=== PATIENT | male | born 1965 | race Caucasian/White ===

== ENCOUNTER 2020-06-18 16:30 | Inpatient (IN) | payer OTHER ==
[~2020-06-18] VITALS: Ht 180.3 cm; Wt 117.5 kg
--- NOTE | 2020-06-18 16:55 | NUR ---
C/O MID STERNAL CHEST PRESSURE WITH SOB, NON RADIATING SINCE 1300 TODAY. DENIES DIZZY, N/V, ARM/JAW PAIN. PT HAS FACIAL RASH STARTED 1400 TODAY. PATIENT A/OX4, BREATHING EVEN AND UNLABORED, NO SOB NOTED, NEEDS ATTENDED. CHANGED INTO A GOWN, ATTACHED TO THE RESEARCH AND DEVELOPMENT MANAGER.
--- NOTE | 2020-06-18 17:00 | NUR ---
DR. URIBE AT BEDSIDE FOR EVAL.
--- NOTE | 2020-06-18 17:07 | NUR ---
EKG DONE BY EMT PRESENTED RESULT TO DR. URIBE
--- NOTE | 2020-06-18 17:09 | NUR ---
IV LINE ESTABLISHED, BLOOD DRAWN AND SENT TO LAB.
[2020-06-18] MEDS ORDERED: NITROGLYCERIN PACKET 1 GM PACKET ONE (17:10)
--- NOTE | 2020-06-18 17:17 | NUR ---
US TECH AT BEDSIDE.
[2020-06-18] MEDS ORDERED: NITROGLYCERIN PACKET 1 GM PACKET TOP ONE (17:30)
[2020-06-18 17:37] LABS: ALBUMIN 4.1 g/dL (3.4-5.0); BILIRUBIN,DIRECT 0.2 mg/dL (0.0-0.2); BILIRUBIN,TOTAL 0.6 mg/dL (0.2-1.0); CALCIUM, SERUM 9.3 mg/dL (8.5-10.1); CREATININE 1.1 mg/dL (0.6-1.3); POTASSIUM 4.1 mmol/L (3.5-5.1)
[2020-06-18 17:42] LABS: BASOPHILS % (AUTO) 0.2 % (0.0-2.0); EOSINOPHILS % (AUTO) 0.1 % (0.0-6.0); HEMATOCRIT 47 % (39-51); LYMPHOCYTES # (AUTO) 1.6 /CMM (0.8-4.8); LYMPHOCYTES % (AUTO) 13.8 % (20.0-44.0); MEAN CORPUSCULAR HGB CONC 34 g/dl (31.0-36.0); MEAN CORPUSCULAR VOLUME 94 fL (80-96); MONOCYTES # (AUTO) 0.7 /CMM (0.1-1.30); MONOCYTES % (AUTO) 6.2 % (2.0-12.0); NEUTROPHILS # (AUTO) 9.4 /CMM (1.8-8.9); NEUTROPHILS % (AUTO) 79.7 % (43.0-81.0); PLATELET COUNT (AUTO) 282 /CMM (150-450); RED BLOOD CELL COUNT(AUTO) 4.96 MIL/uL (4.5-6.0); WHITE BLOOD COUNT (AUTO) 11.8 K/uL (4.3-11.0)
--- NOTE | 2020-06-18 17:54 | NUR ---
CALLED DR. ESCAMILLA CARDIO [phone] TO CALL US BACK.
[2020-06-18 17:55] LABS: D-DIMER 0.47 mg/L(FEU (0.17-0.50)
[2020-06-18] MEDS ORDERED: HEPARIN SODIUM, PORCINE 5000 UNITS/1 ML VIAL IV ONE (18:00)
[2020-06-18] MEDS ORDERED: HEPARIN INFUSION/D5W 500 ML IV PRN ×2 (18:00→20:00)
[2020-06-18] MEDS ORDERED: CLOPIDOGREL BISULFATE 75 MG TABLET PO ONE (18:00)
--- NOTE | 2020-06-18 18:01 | NUR ---
cardiology on-call paged
[2020-06-18] MEDS ORDERED: CLOPIDOGREL BISULFATE 75 MG TABLET ONE (18:02)
[2020-06-18] MEDS ORDERED: HEPARIN SODIUM, PORCINE 5000 UNITS/1 ML VIAL ONE (18:02)
[2020-06-18] MEDS ORDERED: ONDANSETRON HCL/PF 4 MG/2 ML VIAL ONE (18:20)
[2020-06-18] MEDS ORDERED: MORPHINE SULFATE INJ 2 MG/ML DISP.SYRIN ONE (18:20)
--- NOTE | 2020-06-18 18:26 | NUR ---
PATIENT GIVEN MORPHINE 2MG IV AND ZOFRAN FOR CHEST PAIN. HEPARIN DRIP STARTED.
[2020-06-18] MEDS ORDERED: ONDANSETRON HCL/PF - ER 4 MG/2 ML VIAL IV ONE (18:30)
[2020-06-18] MEDS ORDERED: MORPHINE SULFATE INJ 2 MG/ML DISP.SYRIN IV ONE (18:30)
--- NOTE | 2020-06-18 19:18 | NUR ---
PATIENT'S PAIN HAS IMPROVED. INFORMED PATIENT'S FAMILY RE: CURRENT CONDITION. PATIENT'S VITALS STABLE. NO DISTRESS NOTED. ENDORSED HEPARIN DRIP TO KEITH YEUNG. APTT SCHEDULED AT 0000.
[2020-06-18] MEDS ORDERED: IV 1/2NS 1000 ML 1,000 ML IV PRN (20:00)
[2020-06-18] MEDS ORDERED: ACETAMINOPHEN 325 MG TABLET PO PRN (20:00)
[2020-06-18] MEDS ORDERED: NTG 50 MG/D5W250 ML BOTTL 250 ML IV PRN (20:00)
[2020-06-18] MEDS ORDERED: ONDANSETRON HCL/PF 4 MG/2 ML VIAL IV PRN (20:00)
[2020-06-18] MEDS ORDERED: NITROGLYCERIN 0.4 MG/TAB BOTTLE SL PRN (20:00)
[2020-06-18] MEDS ORDERED: ZOLPIDEM TARTRATE 5 MG TABLET PO PRN (20:00)
[2020-06-18] MEDS ORDERED: hydrALAZINE HCL 10 MG TABLET PO PRN (20:30)
--- NOTE | 2020-06-18 20:44 | NUR ---
LAB CALLED REGARDING NEGATIVE COVID RESULT.
--- NOTE | 2020-06-18 21:21 | NUR ---
TELE 322-2
--- NOTE | 2020-06-18 21:25 | NUR ---
attempted to give report. nurse busy. awaiting call back
--- NOTE | 2020-06-18 22:40 | NUR ---
New troponin draw 4.640. Dr Elliott aware. No new orders
[2020-06-18] MEDS ORDERED: NTG 50 MG/D5W250 ML BOTTL 250 ML IV ONE (22:54)
--- NOTE | 2020-06-18 23:04 | NUR ---
spoke to dr. segura per dr. mayberry request. aware of trop 4.6 and currently on heprin drip per protocol. no new orders at this time.
[2020-06-19] VITALS (39 sets, daily range): BP systolic 90–158; BP diastolic 44–116
--- NOTE | 2020-06-19 | NUR ---
GAVE REPORT TO GAMAL DUKES FOR CIPRIANO
--- NOTE | 2020-06-19 00:30 | NUR ---
PACK PULLER RCD PT FROM ER W/DX NSTEMI. PT A/Ox4. NSR ON MONITOR. NITRO DRIP DCD. HEPARIN DRIP AT 1200 UNITS/HR. PTT AT 0000. ON ROOM AIR. SKIN INTACT.
[2020-06-19] MEDS: ATORVASTATIN 40 MG TABLET PO SCH ×2 (00:40→21:24)
[2020-06-19] MEDS: METOPROLOL TARTRATE 25 MG TABLET PO SCH ×4 (00:41→21:00)
[2020-06-19] MEDS: NITROGLYCERIN 30 GM TUBE TP SCH ×6 (01:09→23:07)
[2020-06-19] MEDS ORDERED: MORPHINE SULFATE INJ 2 MG/ML DISP.SYRIN IV PRN (01:30)
[2020-06-19] MEDS ORDERED: NITROGLYCERIN PACKET 1 GM PACKET ONE ×2 (01:37→06:15)
--- NOTE | 2020-06-19 02:00 | NUR ---
EXHIBITIONS CURATOR HEPARIN ADJUSTED PER PROTOCOL PTT FOR 0800.
[2020-06-19] MEDS ORDERED: HEPARIN SODIUM, PORCINE 5000 UNITS/1 ML VIAL IV ONE (02:30)
[2020-06-19 04:34] LABS: BASOPHILS % (AUTO) 0.1 % (0.0-2.0); EOSINOPHILS % (AUTO) 0.2 % (0.0-6.0); HEMATOCRIT 42 % (39-51); HEMOGLOBIN 14.1 g/dL (13.5-17.5); LYMPHOCYTES # (AUTO) 2.3 /CMM (0.8-4.8); MEAN CORPUSCULAR HGB CONC 34 g/dl (31.0-36.0); MEAN CORPUSCULAR VOLUME 94 fL (80-96); MONOCYTES % (AUTO) 7.4 % (2.0-12.0); NEUTROPHILS # (AUTO) 10.3 /CMM (1.8-8.9); NEUTROPHILS % (AUTO) 75.3 % (43.0-81.0); PLATELET COUNT (AUTO) 276 /CMM (150-450); RED BLOOD CELL COUNT(AUTO) 4.44 MIL/uL (4.5-6.0); WHITE BLOOD COUNT (AUTO) 13.8 K/uL (4.3-11.0)
[2020-06-19 04:49] LABS: ALBUMIN 3.4 g/dL (3.4-5.0); BILIRUBIN,TOTAL 0.6 mg/dL (0.2-1.0); CALCIUM, SERUM 8.9 mg/dL (8.5-10.1); CREATININE 0.9 mg/dL (0.6-1.3); POTASSIUM 4.1 mmol/L (3.5-5.1); TOTAL PROTEIN, SERUM 6.9 g/dL (6.4-8.2)
[2020-06-19 04:59] LABS: THYROID STIMULATING HORMONE 0.154 uIU/mL (0.358-3.74)
--- NOTE | 2020-06-19 06:56 | NUR ---
LABOR DELIVERY RN PT DECLINES TO SIGN CONSENT WITHOUT SPEAKING TO
[2020-06-19] MEDS ORDERED: LIDOCAINE HCL/PF 1% 30 ML SDV ONE (08:39)
[2020-06-19] MEDS ORDERED: LOSA1TAB39 PO (08:41)
[2020-06-19] MEDS ORDERED: CLOP75TA15 PO (08:41)
[2020-06-19] MEDS ORDERED: AMLO-213 PO (08:41)
[2020-06-19] MEDS ORDERED: METO50TA16 PO (08:41)
[2020-06-19] MEDS: CLOPIDOGREL BISULFATE 75 MG TABLET PO SCH (09:00)
--- NOTE | 2020-06-19 09:00 | NUR ---
PT LEFT FOR CATHLAB, DR. ESCAMILLA EXPLAINED PROCEDURE TO PT AND PT'S . PT SIGNED CONSENT PRIOR TO LEAVING FOR CATHLAB
[2020-06-19] MEDS ORDERED: FENTANYL PF 100MCG/2ML AMPUL ONE (09:17)
[2020-06-19] MEDS ORDERED: MIDAZOLAM HCL 2 MG/2ML VIAL ONE (09:17)
[2020-06-19] MEDS ORDERED: IV NS 0.9% 1,000 ML ONE (09:19)
[2020-06-19] MEDS ORDERED: NITROGLYCERIN ICAR 1,000 MCG/10 ML VIAL ICAR ONE (09:24)
[2020-06-19] MEDS ORDERED: IODIXANOL 150 ML IV ONE (09:24)
[2020-06-19] MEDS ORDERED: ASPIRIN 81 MG TAB.CHEW ONE ×2 (09:45→10:27)
[2020-06-19] MEDS ORDERED: HEPARIN SODIUM, PORCINE 5000 UNITS/1 ML VIAL ONE (10:07)
[2020-06-19] MEDS ORDERED: TICAGRELOR 90 MG TABLET PO ONE (10:11)
[2020-06-19] MEDS ORDERED: TIROFIBAN-0.9% SODIUM CHLORIDE 100 ML IV ONE (10:14)
[2020-06-19] MEDS ORDERED: IODIXANOL 320MG/ML 100 ML IV ONE (10:16)
--- NOTE | 2020-06-19 11:14 | NUR ---
RN NOTES: Back to ICU from cath lab manager, R radial TR band inplace, no bleeding or swelling on procedure site. Pt awake and alert, cellphone within reach. Instructions not to use R hand for now due to procedure access. Explained plan of care, aware of blocked arteries involved. Aware of overnight stay again for close observation. Orders reviewed.
[2020-06-19] MEDS: PANTOPRAZOLE 40 MG TABLET.DR PO SCH (11:43)
[2020-06-19] MEDS ORDERED: methylPREDNISolone SOD SUCC 125 MG/2ML VIAL IV ONE (13:30)
[2020-06-20] VITALS (10 sets, daily range): BP systolic 92–141; BP diastolic 57–86
[2020-06-20] MEDS: NITROGLYCERIN 30 GM TUBE TP SCH (05:32)
[2020-06-20] MEDS: PANTOPRAZOLE 40 MG TABLET.DR PO SCH (08:40)
[2020-06-20] MEDS: METOPROLOL TARTRATE 25 MG TABLET PO SCH (08:41)
[2020-06-20] MEDS: CLOPIDOGREL BISULFATE 75 MG TABLET PO SCH (08:41)
[2020-06-20] MEDS ORDERED: ATOR40TA PO (09:26)
[2020-06-20] MEDS ORDERED: ASPIRIN EC 81 MG TABLET.DR PO SCH (09:30)
[2020-06-20] MEDS ORDERED: ASPI-1420 PO (09:30)
[2020-06-20] MEDS ORDERED: METF-440 PO (09:32)
[2020-06-20] MEDS ORDERED: TICAGRELOR 90 MG TABLET PO SCH (10:00)
--- NOTE | 2020-06-20 11:15 | NUR ---
RN NOTES PT DC HOME. PT A/OX4. AMBULATORY. DISCHARGE EDUCATION GIVEN, PT VERBALIZED UNDERSTANDING. VS STABLE. LEFT IN STABLE CONDITION.
== END 2020-06-20 11:11 | disposition home or self-care (01) | DRG 247 ==
LOC: ER 16:35 → TRANSITION 23:06 → ICU 23:56
PROVIDERS: ADMIT Internal Medicine; ATTEND Internal Medicine
PROC: 4A023N7 Measurement of Cardiac Sampling and Pressure, Left Heart, Percutaneous Approach (ICD-10-PCS; principal; 2020-06-19)
PROC: 027135Z Dilation of Coronary Artery, Two Arteries with Two Drug-eluting Intraluminal Devices, Percutaneous Approach (ICD-10-PCS; 2020-06-19)
PROC: B211YZZ Fluoroscopy of Multiple Coronary Arteries using Other Contrast (ICD-10-PCS; 2020-06-19)
DX: I21.4 Non-ST elevation (NSTEMI) myocardial infarction (principal); I10 Essential (primary) hypertension; E66.9 Obesity, unspecified; Z68.36 Body mass index [BMI] 36.0-36.9, adult; E78.5 Hyperlipidemia, unspecified; E11.9 Type 2 diabetes mellitus without complications; Z20.822 Contact with and (suspected) exposure to COVID-19; Z87.891 Personal history of nicotine dependence; Z88.6 Allergy status to analgesic agent; Z83.3 Family history of diabetes mellitus; I25.10 Atherosclerotic heart disease of native coronary artery without angina pectoris
CPT/HCPCS: 36415; 71045-TC; 76705-TC; 80048-TC; 80053-TC; 80061-TC; 80076-TC; 83690-TC; 84443-TC; 84484-TC; 85025-TC; 85378-TC; 85610-TC; 85730-TC; 87081-TC; 92980; 92981; 93307-TC; C1725; C1769; C1887; C9803; G0378; G0500; J1644; J2250; J2270; J2405; J2930; J3010; J3490; J7030; Q9967

== ENCOUNTER 2021-03-12 17:17 | Emergency (ER) | payer OTHER ==
[~2021-03-12] VITALS: Ht 180.3 cm; Wt 108.9 kg
[~2021-03-12 17:17] MED LIST: AMLO-213 PO; ASPI-1420 PO; ATOR40TA PO; CLOP75TA15 PO; LOSA1TAB39 PO; METF-440 PO; METO50TA16 PO
[2021-03-12 17:35] VITALS: BP 135/83
[2021-03-12] MEDS ORDERED: BUDE180A INH (17:38)
[2021-03-12] MEDS ORDERED: GUAI-671 PO (17:38)
--- NOTE | 2021-03-12 18:00 | NUR ---
Patient discharged to home in stable condition. Written and verbal after care instructions given. Patient verbalizes understanding of instruction.
== END 2021-03-12 18:04 | disposition home or self-care (01) ==
LOC: ER 17:23
DX: U07.1 COVID-19 (principal); I10 Essential (primary) hypertension; Z98.890 Other specified postprocedural states; Z88.6 Allergy status to analgesic agent; Z79.899 Other long term (current) drug therapy; Z79.82 Long term (current) use of aspirin

== ENCOUNTER 2023-04-01 20:17 | Inpatient (IN) | payer OTHER ==
[~2023-04-01] VITALS: Ht 172.7 cm; Wt 99.8 kg
[~2023-04-01 20:17] MED LIST changes: +BUDE180A INH; +GUAI-671 PO
[2023-04-01] MEDS ORDERED: LIDOCAINE 2% JEL UROJET 10 ML MM ONE ×2 (21:27→22:52)
[2023-04-02] MEDS ORDERED: CEFTRIAXONE 1GM BAG (ER ONLY) 1 GM/50 ML PIGGYBACK IV ONE (00:30)
[2023-04-02 01:07] LABS: BASOPHILS % (AUTO) 0.4 % (0.0-2.0); EOSINOPHILS # (AUTO) 0.1 K/uL (0.0-0.7); EOSINOPHILS % (AUTO) 0.8 % (0.0-6.0); HEMATOCRIT 38 % (39-51); HEMOGLOBIN 12.6 g/dL (13.5-17.5); LYMPHOCYTES # (AUTO) 1.9 K/uL (0.8-4.8); LYMPHOCYTES % (AUTO) 21.6 % (20.0-44.0); MEAN CORPUSCULAR HEMOGLOBIN 33 PG (26.0-33.0); MEAN CORPUSCULAR HGB CONC 34 g/dl (31.0-36.0); MEAN CORPUSCULAR VOLUME 97 fL (80-96); MONOCYTES # (AUTO) 0.5 K/uL (0.1-1.30); MONOCYTES % (AUTO) 5.7 % (2.0-12.0); NEUTROPHILS # (AUTO) 6.3 K/uL (1.8-8.9); NEUTROPHILS % (AUTO) 71.5 % (43.0-81.0); PLATELET COUNT (AUTO) 236 K/uL (150-450); RED BLOOD CELL COUNT(AUTO) 3.86 MIL/uL (4.5-6.0); RED CELL DISTRIBUTION WIDTH 13.4 % (11.5-15.0); WHITE BLOOD COUNT (AUTO) 8.9 K/uL (4.3-11.0)
[2023-04-02] MEDS ORDERED: CEFTRIAXONE 1GM BAG (ER ONLY) 50 ML IV ONE (01:08)
[2023-04-02 01:14] LABS: INR 1.08 (0.91-1.10); PARTIAL THROMBOPLASTIN TIME 26.1 SEC (24.3-34.3); PROTHROMBIN TIME 11.4 SECS (9.2-11.1)
[2023-04-02 01:24] LABS: ALBUMIN 3.7 g/dL (3.4-5.0); BILIRUBIN,DIRECT 0.1 mg/dL (0.0-0.2); BILIRUBIN,TOTAL 0.4 mg/dL (0.2-1.0); CALCIUM, SERUM 9.2 mg/dL (8.5-10.1); CREATININE 1.1 mg/dL (0.6-1.3); TOTAL PROTEIN, SERUM 7.1 g/dL (6.4-8.2)
[2023-04-02 01:35] LABS: POTASSIUM 3.9 mmol/L (3.5-5.1)
[2023-04-02] MEDS ORDERED: Z GUARD REMEDY 4 OZ OINT TP PRN (05:30)
[2023-04-02] MEDS ORDERED: CEFTRIAXONE 1 G in IV D5W 50 ML IV SCH (05:30)
[2023-04-02] MEDS ORDERED: ONDANSETRON HCL/PF 4 MG/2 ML VIAL IVP PRN (05:30)
[2023-04-02] MEDS ORDERED: MAG HYDROX/AL HYDROX/SIMETH 30 ML UDC PO PRN (05:30)
[2023-04-02] MEDS ORDERED: ACETAMINOPHEN 325 MG TABLET PO PRN (05:30)
[2023-04-02] MEDS ORDERED: IV NS 0.9% 1,000 ML IV PRN (05:30)
[2023-04-02] MEDS ORDERED: MORPHINE SULFATE INJ 2 MG/ML DISP.SYRIN IV PRN (05:30)
[2023-04-02] MEDS ORDERED: CLONIDINE HCL 0.1 MG TABLET PO PRN (05:30)
[2023-04-02] MEDS ORDERED: MAGNESIUM HYDROXIDE 30 ML UDC PO PRN (05:30)
[2023-04-02 06:40] VITALS: BP 155/92; TEMP 98.1
[2023-04-02 08:00] VITALS: BP 183/114; TEMP 98.8; O2SAT 95
[2023-04-02] MEDS: METOPROLOL TARTRATE 50 MG TABLET PO SCH ×2 (08:23→16:25)
[2023-04-02] MEDS: AMLODIPINE BESYLATE 10 MG TABLET PO SCH (08:23)
[2023-04-02] MEDS ORDERED: BUDESONIDE RESPULE INH 0.25 MG/2 ML AMPUL.NEB NEB SCH (09:00)
[2023-04-02] MEDS ORDERED: DEXTROSE 50%-WATER 50 ML DISP.SYRIN IV PRN (10:00)
[2023-04-02] MEDS: INSULIN REGULAR, HUMAN 100 UNIT/ML 3 ML VIAL SQ PRN ×3 (11:38→21:38)
[2023-04-02] MEDS: BLOOD SUGAR DIAGNOSTIC 1 EACH STRIP IN SCH ×3 (11:52→22:28)
[2023-04-02 11:59] LABS: APPEARANCE,URINE SLIGHTLY CLOUDY (CLEAR); BILIRUBIN,URINE NEGATIVE (NEGATIVE); BLOOD, URINE 3+ Ery/uL (NEGATIVE); COLOR,URINE RED (YELLOW); KETONES,URINE NEGATIVE (NEGATIVE); LEUKOCYTE ESTERASE ,URINE TRACE (NEGATIVE); NITRITE, URINE NEGATIVE (NEGATIVE); PH,URINE 5.5 (5.0-8.0); PROTEIN,URINE NEGATIVE (NEGATIVE); UGLUCOSE NEGATIVE (NEGATIVE); UROBILINOGEN,URINE 0.2 EU/dL (0.2)
[2023-04-02 12:14] LABS: RBC,URINE 81-100 /HPF (0-2); WBC,URINE 0-2 /HPF (0-3)
[2023-04-02 12:15] LABS: ADD URINE CULTURE NO; BACTERIA,URINE Few /HPF (None Seen); SQUAMOUS EPITHELIAL CELL,UR Rare /HPF (None Seen)
[2023-04-02 16:00] VITALS: BP 169/112; TEMP 98.4; O2SAT 95
[2023-04-02 20:00] VITALS: BP 150/88; TEMP 207.1; TEMP 97.3; O2SAT 95
[2023-04-02] MEDS ORDERED: CEFTRIAXONE 2 G in IV NS 0.9% 100 ML IV SCH (21:00)
[2023-04-03] MEDS: BLOOD SUGAR DIAGNOSTIC 1 EACH STRIP IN SCH ×2 (06:44→11:40)
[2023-04-03] MEDS: INSULIN REGULAR, HUMAN 100 UNIT/ML 3 ML VIAL SQ PRN ×2 (06:46→11:41)
[2023-04-03 07:25] LABS: BASOPHILS % (AUTO) 0.3 % (0.0-2.0); EOSINOPHILS # (AUTO) 0.1 K/uL (0.0-0.7); EOSINOPHILS % (AUTO) 0.8 % (0.0-6.0); HEMATOCRIT 36 % (39-51); HEMOGLOBIN 12.4 g/dL (13.5-17.5); LYMPHOCYTES # (AUTO) 2.2 K/uL (0.8-4.8); LYMPHOCYTES % (AUTO) 24.1 % (20.0-44.0); MEAN CORPUSCULAR HEMOGLOBIN 33 PG (26.0-33.0); MEAN CORPUSCULAR HGB CONC 34 g/dl (31.0-36.0); MEAN CORPUSCULAR VOLUME 97 fL (80-96); MONOCYTES # (AUTO) 0.9 K/uL (0.1-1.30); MONOCYTES % (AUTO) 9.8 % (2.0-12.0); NEUTROPHILS # (AUTO) 5.8 K/uL (1.8-8.9); PLATELET COUNT (AUTO) 232 K/uL (150-450); RED BLOOD CELL COUNT(AUTO) 3.76 MIL/uL (4.5-6.0); RED CELL DISTRIBUTION WIDTH 13.7 % (11.5-15.0); WHITE BLOOD COUNT (AUTO) 8.9 K/uL (4.3-11.0)
[2023-04-03 07:55] LABS: CALCIUM, SERUM 9.1 mg/dL (8.5-10.1); CREATININE 1.1 mg/dL (0.6-1.3); MAGNESIUM 2.1 mg/dL (1.8-2.4); PHOSPHORUS 3.7 mg/dL (2.5-4.9); POTASSIUM 3.9 mmol/L (3.5-5.1)
[2023-04-03 08:00] VITALS: BP 165/105; TEMP 97.7; O2SAT 96
[2023-04-03 08:17] VITALS: BP 165/105
[2023-04-03] MEDS: METOPROLOL TARTRATE 50 MG TABLET PO SCH (08:17)
[2023-04-03] MEDS: AMLODIPINE BESYLATE 10 MG TABLET PO SCH (08:17)
[2023-04-03] MEDS ORDERED: METF-442 PO (08:59)
[2023-04-03] MEDS ORDERED: FINA5TAB11 PO (08:59)
[2023-04-03] MEDS ORDERED: TICA60TA PO (08:59)
[2023-04-03] MEDS ORDERED: AMLO5TAB4 PO (08:59)
[2023-04-03] MEDS ORDERED: LOSA50TA39 PO (08:59)
[2023-04-03] MEDS ORDERED: CEPH500C2 PO (11:03)
[2023-04-03] MEDS ORDERED: HYDR-3972 PO (11:03)
== END 2023-04-03 12:45 | disposition home or self-care (01) | DRG 461 ==
LOC: ER 20:24 → MED 04-02 02:37
PROVIDERS: ADMIT Nurse Practitioner Acute Care; ATTEND Nurse Practitioner Acute Care
PROC: 3E1K78Z Irrigation of Genitourinary Tract using Irrigating Substance, Via Natural or Artificial Opening (ICD-10-PCS; principal; 2023-04-02)
DX: C67.9 Malignant neoplasm of bladder, unspecified (principal); N39.0 Urinary tract infection, site not specified; E11.9 Type 2 diabetes mellitus without complications; B96.89 Other specified bacterial agents as the cause of diseases classified elsewhere; E66.9 Obesity, unspecified; E78.5 Hyperlipidemia, unspecified; I10 Essential (primary) hypertension; I25.10 Atherosclerotic heart disease of native coronary artery without angina pectoris; I25.2 Old myocardial infarction; R31.0 Gross hematuria; Z87.891 Personal history of nicotine dependence; Z79.82 Long term (current) use of aspirin; Z79.84 Long term (current) use of oral hypoglycemic drugs; Z85.51 Personal history of malignant neoplasm of bladder; Z95.5 Presence of coronary angioplasty implant and graft; R33.8 Other retention of urine
CPT/HCPCS: 36415; 76856-TC; 80048-TC; 80076-TC; 81001; 82962-TC; 83735-TC; 84100-TC; 85025-TC; 85730-TC; 86850-TC; A4217; A4223; G0378; J0696; J1815; J2270; J3490; J7030

== ENCOUNTER 2023-04-24 12:34 | Emergency (ER) | payer OTHER ==
[~2023-04-24] VITALS: Ht 180.3 cm; Wt 113.4 kg
[~2023-04-24 12:34] MED LIST changes: -AMLO-213 PO; +AMLO5TAB4 PO; -ASPI-1420 PO; -ATOR40TA PO; -BUDE180A INH; +CEPH500C2 PO; -CLOP75TA15 PO; +FINA5TAB11 PO; -GUAI-671 PO; +HYDR-3972 PO; -LOSA1TAB39 PO; +LOSA50TA39 PO; -METF-440 PO; +METF-442 PO
[2023-04-24 13:26] VITALS: TEMP 98.2
[2023-04-24 14:30] LABS: BASOPHILS # (AUTO) 0.2 K/uL (0.0-0.2); BASOPHILS % (AUTO) 2.6 % (0.0-2.0); EOSINOPHILS # (AUTO) 0.1 K/uL (0.0-0.7); EOSINOPHILS % (AUTO) 1.5 % (0.0-6.0); HEMATOCRIT 34 % (39-51); HEMOGLOBIN 11.2 g/dL (13.5-17.5); LYMPHOCYTES # (AUTO) 1.5 K/uL (0.8-4.8); LYMPHOCYTES % (AUTO) 15.7 % (20.0-44.0); MEAN CORPUSCULAR HEMOGLOBIN 32 PG (26.0-33.0); MEAN CORPUSCULAR HGB CONC 33 g/dl (31.0-36.0); MEAN CORPUSCULAR VOLUME 96 fL (80-96); MONOCYTES # (AUTO) 0.6 K/uL (0.1-1.30); MONOCYTES % (AUTO) 5.8 % (2.0-12.0); NEUTROPHILS # (AUTO) 7.2 K/uL (1.8-8.9); NEUTROPHILS % (AUTO) 74.4 % (43.0-81.0); PLATELET COUNT (AUTO) 281 K/uL (150-450); RED CELL DISTRIBUTION WIDTH 13.3 % (11.5-15.0); WHITE BLOOD COUNT (AUTO) 9.7 K/uL (4.3-11.0)
[2023-04-24 14:36] LABS: CALCIUM, SERUM 9.1 mg/dL (8.5-10.1); CREATININE 1.7 mg/dL (0.6-1.3); POTASSIUM 4.3 mmol/L (3.5-5.1)
[2023-04-24 14:47] LABS: PARTIAL THROMBOPLASTIN TIME 25.9 SEC (24.3-34.3); PROTHROMBIN TIME 10.6 SECS (9.2-11.1)
[2023-04-24 15:49] LABS: APPEARANCE,URINE BLOODY (CLEAR); COLOR,URINE RED (YELLOW)
[2023-04-24 15:52] LABS: RBC,URINE TOO NUMEROUS TO COUN /HPF (0-2)
[2023-04-24 15:54] LABS: BACTERIA,URINE None seen /HPF (None Seen); SQUAMOUS EPITHELIAL CELL,UR 0-2 /HPF (None Seen); WBC,URINE 0-2 /HPF (0-3)
[2023-04-24 17:46] VITALS: BP 144/98; O2SAT 100
== END 2023-04-24 17:47 | disposition home or self-care (01) ==
LOC: ER 12:46
DX: R31.9 Hematuria, unspecified (principal); I10 Essential (primary) hypertension; E11.9 Type 2 diabetes mellitus without complications; E78.5 Hyperlipidemia, unspecified; Z88.6 Allergy status to analgesic agent; Z88.8 Allergy status to other drugs, medicaments and biological substances; Z79.84 Long term (current) use of oral hypoglycemic drugs; Z79.899 Other long term (current) drug therapy
CPT/HCPCS: 36415; 80048-TC; 81001; 85025-TC; 85730-TC; 87086-TC

== ENCOUNTER 2023-04-25 00:57 | Emergency (ER) | payer OTHER ==
[~2023-04-25] VITALS: Ht 175.3 cm; Wt 113.4 kg
[2023-04-25] MEDS ORDERED: LIDOCAINE 2% JEL UROJET 10 ML MM ONE (02:14)
[2023-04-25 04:23] VITALS: BP 142/89; TEMP 98.7; O2SAT 100
== END 2023-04-25 04:23 | disposition home or self-care (01) ==
LOC: ER 00:59
DX: R33.9 Retention of urine, unspecified (principal); R51.9 Headache, unspecified; I10 Essential (primary) hypertension; E11.9 Type 2 diabetes mellitus without complications; Z88.6 Allergy status to analgesic agent; Z88.8 Allergy status to other drugs, medicaments and biological substances; Z85.51 Personal history of malignant neoplasm of bladder
CPT/HCPCS: 99284; 51700; J3490; A4217